=== PATIENT | male | born 1990 | race Caucasian/White ===

== ENCOUNTER 2016-09-10 18:21 | Emergency (ER) | payer SELFPAY ==
[~2016-09-10] VITALS: Ht 170.2 cm; Wt 52.2 kg
[~2016-09-10 18:21] MED LIST: HYDR-3989 PO; IBUP-1724 PO
--- OUTSIDE RECORDS SUMMARY | 2016-09-10 18:25 | XMS REPORT | Continuity of Care Document ---
Author Author [facility] Organization [facility] Address Unknown Phone Unavailable Support Name Relationship Address Phone VISHAL HERNANDEZ DO Caregiver [address] [phone] IGLESIA PIZARRO MD Caregiver [address] [address] Unavailable [place] Next Of Kin [address] [place] [address] Insurance Providers Payer Name Policy Number Subscriber Name Relationship Self Pay Major Castro 19 Self Problems Medical Problems Problem Onset Date Status Urethral calculus Unknown Active Urethral calculus Unknown Active Acute prostatitis Unknown Active Renal calculi Unknown Active Prostate calculus Unknown Active Acute prostatitis Unknown Active Low back pain Unknown Active Medications Medication Dose Route Sig Days/Qty Instructions Order Date Discontinued Date Status Hydrocodone/Acetaminophen 1-2 Tab PO Every 6 Hours PRN PAIN 10 Qty Active Diclofenac Sodium 75 Mg PO TWICE A DAY 20 Qty 02/19/14 Active Hydrocodone/Acetaminophen 1-2 Tab PO Q6H/0300,0900,1500,2100 PRN acute prostatitis 20 Qty 02/19/14 Active Social History Social History Problem Response Recorded Date/Time Smoking Status Unknown if ever smoked 03/30/2014 6:50pm Hx Substance Use No 03/30/2014 6:50pm Hx Alcohol Use Yes 03/30/2014 6:50pm Hospital Discharge Instructions No hospital discharge instructions. Plan of Care No plan of care. Functional Status Query Response Date Recorded Physical Hygiene Self March 30, 2014 6:50pm Disabilities None March 30, 2014 6:50pm Devices Used None March 30, 2014 6:50pm Dressing Self March 30, 2014 6:50pm Ambulation Self March 30, 2014 6:50pm Diet Self March 30, 2014 6:50pm Mental Status Alert March 30, 2014 7:34pm Disabilities None March 30, 2014 6:50pm Devices Used None March 30, 2014 6:50pm Physical Hygiene Self March 30, 2014 6:50pm Dressing Self March 30, 2014 6:50pm Ambulation Self March 30, 2014 6:50pm Diet Self March 30, 2014 6:50pm Allergies, Adverse Reactions, Alerts Allergen Type Severity Reaction Status Last Updated No Known Allergies Active 03/30/14 Immunizations No immunization records. Vital Signs Acute Vital Signs Vital Response Date/Time Temperature (Fahrenheit) 98.7 deg F (96.8 - 99.1) Temperature (Calculated Celsius) 37.43525 degrees C (36.0 - 37.3) Pulse Rate (adult) 75 bpm (60 - 100) Respiratory Rate 14 breaths/min (10 - 20) O2 Sat by Pulse Oximetry 100 % (90 - 100) Blood Pressure 146/73 mm Hg Height 5 ft 6 in Weight 125 lb Body Mass Index 20.0 kg/m^2 Results Test Source Date Result Interp. Ref. Range Comments Alanine Aminotransferase (ALT/SGPT) March 30, 2014 6:33pm 44 U/L N 21 -72 Albumin March 30, 2014 6:33pm 4.4 G/DL N 3.5-5.0 Albumin/Globulin Ratio March 30, 2014 6:33pm 1.7 RATIO N 1.1-2.2 Alkaline Phosphatase March 30, 2014 6:33pm 81 U/L N 38-126 Amylase Level February 19, 2014 1:25pm 48 U/L N 30-110 Anion Gap March 30, 2014 6:33pm 10 MEQ/L N 5-15 Aspartate Amino Transf (AST/SGOT) March 30, 2014 6:33pm 24 U/L N 17- 59 BUN/Creatinine Ratio March 30, 2014 6:33pm 11 RATIO N 6-26 Basophils # (Auto) March 30, 2014 6:33pm 0.2 T/MM3 N 0-0.2 Basophils (%) (Auto) March 30, 2014 6:33pm 1.0 % N 0-2 Blood Urea Nitrogen March 30, 2014 6:33pm 9.0 MG/DL N 9-20 Calcium Level March 30, 2014 6:33pm 9.8 MG/DL N 8.4-10.2 Calculated Osmolality March 30, 2014 6:33pm 274 MOSM/KG N 261-280 Carbon Dioxide Level March 30, 2014 6:33pm 27 MEQ/L N 22-30 Chloride Level March 30, 2014 6:33pm 106 MEQ/L N 98-107 Conjugated Bilirubin March 30, 2014 6:33pm 0.00 MG/DL N 0.00-0.30 Creatinine March 30, 2014 6:33pm 0.8 MG/DL N 0.8-1.5 Eosinophils # (Auto) March 30, 2014 6:33pm 0.3 T/MM3 N 0-0.5 Eosinophils (%) (Auto) March 30, 2014 6:33pm 1.7 % N 0-4 Globulin March 30, 2014 6:33pm 2.6 G/DL N 2.4-3.6 Glucose Level March 30, 2014 6:33pm 91 MG/DL N 75-110 Hematocrit March 30, 2014 6:33pm 38.8 % L 41-53 Hemoglobin March 30, 2014 6:33pm 13.4 GM/DL L 13.5-17.5 Lymphocytes # (Auto) March 30, 2014 6:33pm 2.8 T/MM3 N 1-4.8 Lymphocytes (%) (Auto) March 30, 2014 6:33pm 19.3 % L 23-45 Mean Corpuscular Hemoglobin March 30, 2014 6:33pm 29.4 UUG N 26-34 Mean Corpuscular Hemoglobin Concent March 30, 2014 6:33pm 34.5 GM/DL N 31-37 Mean Corpuscular Volume March 30, 2014 6:33pm 85.1 UM3 N 80-100 Mean Platelet Volume March 30, 2014 6:33pm 9.3 UM3 L 9.4-12.4 Monocytes # (Auto) March 30, 2014 6:33pm 0.7 T/MM3 N 0-0.8 Monocytes (%) (Auto) March 30, 2014 6:33pm 4.7 % N 0-9.0 Neutrophils # (Auto) March 30, 2014 6:33pm 10.8 T/MM3 H 1.8-7.7 Neutrophils (%) (Auto) March 30, 2014 6:33pm 73.0 % H 33-66 Platelet Count March 30, 2014 6:33pm 271 T/MM3 N 130-400 Potassium Level March 30, 2014 6:33pm 3.7 MEQ/L N 3.6-5 RDW Standard Deviation March 30, 2014 6:33pm 39.2 FL N 36.9-50.2 Red Blood Count March 30, 2014 6:33pm 4.56 M/MM3 N 4.50-5.90 Sodium Level March 30, 2014 6:33pm 143 MEQ/L N 134-144 Total Bilirubin March 30, 2014 6:33pm 0.40 MG/DL N 0.20-1.30 Total Protein March 30, 2014 6:33pm 7.0 G/DL N 6.3-8.2 Unconjugated Bilirubin March 30, 2014 6:33pm 0.10 MG/DL N 0.00-1.10 Urine Bilirubin March 30, 2014 7:04pm Negative - Has specimen been collected/obtained? Y Urine Blood March 30, 2014 7:04pm Negative - Has specimen been collected/obtained? Y Urine Collection Type March 30, 2014 7:04pm Cleancatch-midstream - Has specimen been collected/obtained? Y Urine Color March 30, 2014 7:04pm Yellow - Has specimen been collected/obtained? Y Urine Glucose (UA) March 30, 2014 7:04pm Negative - Has specimen been collected/obtained? Y Urine Ketones March 30, 2014 7:04pm Negative - Has specimen been collected/obtained? Y Urine Leukocyte Esterase March 30, 2014 7:04pm Negative - Has specimen been collected/obtained? Y Urine Nitrite March 30, 2014 7:04pm Negative - Has specimen been collected/obtained? Y Urine Protein March 30, 2014 7:04pm Negative - Has specimen been collected/obtained? Y Urine Specific [place] March 30, 2014 7:04pm 1.010 L - Has specimen been collected/obtained? Y Urine Turbidity March 30, 2014 7:04pm Clear - Has specimen been collected/obtained? Y Urine Urobilinogen March 30, 2014 7:04pm 0.2 EU/DL - Has specimen been collected/obtained? Y Urine pH March 30, 2014 7:04pm 7.0 - Has specimen been collected/ obtained? Y White Blood Count March 30, 2014 6:33pm 14.7 T/MM3 H 4.5-11.0 Chemistry Specimen Hemolysis March 30, 2014 6:33pm < 15 0-25 0-25 : No Hemolysis.26-70: Slight Hemolysis - can falsely elevate K and Urine Protein. 71-285: Moderate Hemolysis - can falsely elevate K, Troponin I, CA 19-9, PTH, CSF GLucose, and Urine Protein, and can falsely decrease Phenytoin. 286-999: Gross Hemolysis - can falsely elevate K, Troponin I, CA 19-9, PTH, CSF Glucose, and Urine Protine, and can falsely decrease Phenytoin. Recommend specimen recollection. Urinalysis Comment March 30, 2014 7:04pm Microscopic not ind. - Has specimen been collected/obtained? Y Lab Scanned Report March 30, 2014 7:30pm REFERENCE LAB [id number] - Turbidity March 30, 2014 6:33pm < 20 0-20 Glomerular Filtration Rate Calc March 30, 2014 6:33pm 121 - Immature Granulocyte # (Auto) March 30, 2014 6:33pm 0.04 T/MM3 H 0.00 -0.03 Immature Granulocyte % (Auto) March 30, 2014 6:33pm 0.3 % N 0.0-0.5 Procalcitonin February 19, 2014 1:25pm < 0.05 NG/ML - PCT </=0.5 ng/ mL - sepsis not likely;PCT >0.5 and </=2 ng/mL - sepsis possible; PCT >2 ng/mL - sepsis likely; PCT >/=10 ng/mL - systemic inflammatory response - sepsis or septic shock highly indicated. Icterus Index March 30, 2014 6:33pm < 2 0-7 Name: MAJOR CASTRO Unit #: [id number] : 1990 Sex: M Loc / [facility] [place]: ED DOS: 02/19/14 Signed Report #: [id number] DIAGNOSTIC IMAGING REPORT TYPE OF EXAM: CT RENAL W/O CONTRAST Dictated By: SAMRA ANTONIO MD INDICATION: ITS.REASON: right flank pain CT RENAL W/O CONTRAST: Comparison: Renal CT dated February 12, 2014 Technique: Axial CT images were performed through the abdomen and pelvis without intravenous contrast. Findings: The lung bases are clear. The unenhanced liver, gallbladder, spleen pancreas and adrenal glands are normal and stable. Right kidney appears normal. Left kidney again shows tiny nonobstructing stones. There is a tiny 2 mm stone in the superior pole of the right kidney seen on thin slice axial image number 59 and coronal image number 60. Again the ureters are difficult to follow due to the lack of intra-abdominal fat. Bowel loops are unremarkable. Appendix is normal. No gross adenopathy. Bladder is again moderately distended but thin-walled. A small calcification again seen in the central portion of the prostate. This probably represents a benign prostatic calcification or phlebolith rather than a urethral stone. No free fluid. Moderate stool in the rectosigmoid colon. Bone windows are normal. Impression: Tiny bilateral nonobstructing renal stones. No ureteral stones. . Procedures Procedure Status Date Provider(s) THER/PROPH/DIAG INJ IV PUSH completed 02/12/14 TX/PRO/DX INJ NEW DRUG ADDON completed 02/12/14 TX/PRO/DX INJ NEW DRUG ADDON completed 02/12/14 HYDRATE IV INFUSION ADD-ON completed 02/12/14 HYDRATE IV INFUSION ADD-ON completed 02/19/14 THER/PROPH/DIAG INJ IV PUSH completed 02/19/14 Encounters Encounter Location Date/Time Departed Emergency Room [facility] 03/30/14 3:10pm Departed Emergency Room [facility] 02/19/14 11:52am Departed Emergency Room [facility] 02/12/14 9:18am Recent Diagnosis
--- OUTSIDE RECORDS SUMMARY | 2016-09-10 18:25 | XMS REPORT | Continuity of Care Document ---
Author Author [facility] Organization [facility] Address Unknown Phone Unavailable Support Name Relationship Address Phone TAMARA GIRALDO MD Caregiver [address] [place] [address] [place] [phone] LAN CHRISTENSEN Next Of Kin [address] [place] [address] Insurance Providers Payer Name Policy Number Subscriber Name Relationship Self Pay Major Castro 19 Self Problems Medical Problems Problem Onset Date Status Urethral calculus Unknown Active Urethral calculus Unknown Active Acute prostatitis Unknown Active Renal calculi Unknown Active Prostate calculus Unknown Active Acute prostatitis Unknown Active Low back pain Unknown Active Contusion of rib on left side Unknown Active Contusion of rib on left side Unknown Active Medications Medication Dose Route Sig Days/Qty Instructions Order Date Discontinued Date Status Hydrocodone/Acetaminophen 1-2 Tab PO Every 6 Hours PRN PAIN 10 Qty Active Diclofenac Sodium 75 Mg PO TWICE A DAY 20 Qty 02/19/14 Active Hydrocodone/Acetaminophen 1-2 Tab PO Q6H/0300,0900,1500,2100 PRN acute prostatitis 20 Qty 14 Active Hydrocodone/Acetaminophen 1-2 Tab PO Every 6 Hours PRN PAIN 20 Qty 07/11 Active Social History Social History Problem Response Recorded Date/Time Hx Substance Use No 05/28/2014 12:08pm Hx Alcohol Use Yes 05/28/2014 12:08pm Tobacco Usage smoke 02/14/2014 7:41pm Query Response Start Date Stop Date Smoking Status Current every day smoker Hospital Discharge Instructions No hospital discharge instructions. Plan of Care No plan of care. Functional Status Query Response Date Recorded Physical Hygiene Self May 28, 2014 12:08pm Disabilities None May 28, 2014 12:08pm Devices Used None May 28, 2014 12:08pm Dressing Self May 28, 2014 12:08pm Ambulation Self May 28, 2014 12:08pm Diet Self May 28, 2014 12:08pm Mental Status Alert Oriented May 28, 2014 12:08pm Disabilities None May 28, 2014 12:08pm Devices Used None May 28, 2014 12:08pm Physical Hygiene Self May 28, 2014 12:08pm Dressing Self May 28, 2014 12:08pm Ambulation Self May 28, 2014 12:08pm Diet Self May 28, 2014 12:08pm Allergies, Adverse Reactions, Alerts Allergen Type Severity Reaction Status Last Updated No Known Allergies Active 05/28/14 Immunizations Name Given Type Hx Influenza Vaccination No Historical Hx Influenza Vaccination No Historical Vital Signs Acute Vital Signs Vital Response Date/Time Temperature (Fahrenheit) 98.2 deg F (96.8 - 99.1) Temperature (Calculated Celsius) 36.28915 degrees C (36.0 - 37.3) Pulse Rate (adult) 93 bpm (60 - 100) Respiratory Rate 12 breaths/min (10 - 20) O2 Sat by Pulse Oximetry 99 % (90 - 100) Blood Pressure 135/59 mm Hg Height 5 ft 6 in Weight 122 lb Body Mass Index 19.0 kg/m^2 Results Test Source Date Result Interp. [...] 6:33pm 0.10 MG/DL N 0.00-1.10 Urine Bilirubin May 28, 2014 12:40pm Negative - Has specimen been collected/obtained? Y Urine Blood May 28, 2014 12:40pm Negative - Has specimen been collected/obtained? Y Urine Collection Type May 28, 2014 12:40pm Cleancatch-midstream - Has specimen been collected/obtained? Y Urine Color May 28, 2014 12:40pm Yellow - Has specimen been collected/obtained? Y Urine Glucose (UA) May 28, 2014 12:40pm Negative - Has specimen been collected/obtained? Y Urine Ketones May 28, 2014 12:40pm Negative - Has specimen been collected/obtained? Y Urine Leukocyte Esterase May 28, 2014 12:40pm Negative - Has specimen been collected/obtained? Y Urine Nitrite May 28, 2014 12:40pm Negative - Has specimen been collected/obtained? Y Urine Protein May 28, 2014 12:40pm Negative - Has specimen been collected/obtained? Y Urine Specific [place] May 28, 2014 12:40pm 1.015 - Has specimen been collected/obtained? Y Urine Turbidity May 28, 2014 12:40pm Clear - Has specimen been collected/obtained? Y Urine Urobilinogen May 28, 2014 12:40pm 0.2 EU/DL - Has specimen been collected/obtained? Y Urine pH May 28, 2014 12:40pm 6.5 - Has specimen been collected/ obtained? Y [...] decrease Phenytoin. Recommend specimen recollection. Urinalysis Comment May 28, 2014 12:40pm Microscopic not ind. - Has specimen been collected/obtained? Y Lab Scanned Report March 30, 2014 7:30pm REFERENCE LAB [id number] - Turbidity March 30, 2014 6:33pm < [...] 2 0-7 Name: MAJOR CASTRO Unit #: [id number] : 1990 Sex: M Loc / Svc: ED DOS: 05/28/14 Signed Report #: [id number] DIAGNOSTIC IMAGING REPORT TYPE OF EXAM: RIBS LEFT WITH AP CHEST Dictated By: SAMRA ANTONIO MD INDICATION: ITS.REASON: PAIN RIBS LEFT WITH AP CHEST: Comparison: None FINDINGS: The lungs are clear. There is no abnormal airspace opacity, pleural effusion or pneumothorax identified. The heart size, pulmonary vasculature and mediastinum are within normal limits. No displaced rib fracture is seen. IMPRESSION: No acute cardiopulmonary abnormality. . Procedures Procedure Status Date Provider(s) THER/PROPH/DIAG INJ IV PUSH completed 03/30/14 TX/PRO/DX INJ NEW DRUG ADDON completed 03/30/14 TX/PRO/DX INJ NEW DRUG ADDON completed 03/30/14 Encounters Encounter Location Date/Time Departed Emergency Room [facility] 05/28/14 11:51am Departed Emergency Room [facility] 03/30/14 3:10pm Recent Diagnosis
--- OUTSIDE RECORDS SUMMARY | 2016-09-10 18:25 | XMS REPORT | Continuity of Care Document ---
Author Author [facility] Organization [facility] Address Unknown Phone Unavailable Allergies Active Description Code Type Severity Reaction Onset Reported/Identified Relationship to Patient Clinical Status Yes No Known Allergies No Known Allergies Drug Allergy Unknown N/A 05/04/2016 Yes amoxicillin amoxicillin Drug Allergy Severe THROAT SWELLING 05/18/2016 Yes Penicillins Penicillins Drug Allergy Unknown RASH, THROAT SWELLING 05/25/2016 Medications Problems Procedures Results Test Result Range CHEM/HEM PROFILE-BEDSIDE - 05/18/16 18:08 POTASSIUM 3.7 mmol/L 3.5-5.3 METHOD Bedside ANION GAP 19 mmol/L 10-20 METHOD Bedside GLUCOSE 119 mg/dL 70-99 BLOOD UREA NITROGEN 11 mg/dL 7-20 CREATININE 0.8 mg/dL 0.7-1.3 HEMOGLOBIN 12.2 gm/dL 14.0-18.0 HEMATOCRIT 36.0 % 40.0-54.0 SODIUM 142 mmol/L 135-148 CHLORIDE 103 mmol/L 98-110 CARBON DIOXIDE 24 mmol/L 21-32 CALCIUM IONIZED 4.8 mg/dL 4.5-5.3 URINALYSIS, NO REFLEX CULTURE - 05/18/16 19:08 UA LEUKOCYTE ESTERASE DIPSTICK 1+ NEGATIVE UA NITRITE DIPSTICK NEGATIVE NEGATIVE UA PROTEIN DIPSTICK TRACE NEGATIVE UA GLUCOSE DIPSTICK NEGATIVE NEGATIVE UA KETONE DIPSTICK NEGATIVE NEGATIVE UA UROBILINOGEN DIPSTICK NORMAL NORMAL UA BILIRUBIN DIPSTICK NEGATIVE NEGATIVE UA BLOOD DIPSTICK 4+ NEGATIVE UA SPECIFIC GRAVITY 1.006 1.015-1.025 UR PH 7.0 5.0-7.0 UA MICROSCOPIC - 05/18/16 19:08 UA BACTERIA 1+ NEGATIVE UA EPITHELIAL CELLS 2+ epi/hpf 0 - 1+ UA RBC >100 rbc/hpf 0 - 3 UA VOLUME FOR EXAM 12.0 mL (12mL STD) UA WBC 5-10 wbc/hpf 0 - 5 CHEM/HEM PROFILE-BEDSIDE - 05/26/16 00:59 POTASSIUM 4.0 mmol/L 3.5-5.3 METHOD Bedside ANION GAP 19 mmol/L 10-20 METHOD Bedside GLUCOSE 79 mg/dL 70-99 BLOOD UREA NITROGEN 8 mg/dL 7-20 CREATININE 0.9 mg/dL 0.7-1.3 HEMOGLOBIN 12.9 gm/dL 14.0-18.0 HEMATOCRIT 38.0 % 40.0-54.0 SODIUM 141 mmol/L 135-148 CHLORIDE 101 mmol/L 98-110 CARBON DIOXIDE 27 mmol/L 21-32 CALCIUM IONIZED 4.8 mg/dL 4.5-5.3 Encounters ACCT No. Visit Date/Time Discharge Status Pt. Type Provider Facility Loc./Unit Complaint [id number] 05/25/2016 22:05:00 2015 01:08:00 DIS Emergency Jaylin JENNINGS, [facility] [id number] 05/18/2016 17:15:00 2015 20:16:00 DIS Emergency Toni JENNINGS, [facility] [id number] 05/04/2016 16:57:00 2015 18:00:00 DIS Emergency Stefany JENNINGS, [facility]
--- OUTSIDE RECORDS SUMMARY | 2016-09-10 18:25 | XMS REPORT | Continuity of Care Document ---
Author Author [facility] Organization [facility] Address Unknown Phone Unavailable Support Name Relationship Address Phone CHON SHERMAN MD Caregiver [address] [place] [address] [place] [phone] ROBERTO SHERMAN MD Caregiver [address] [place] [address] [place] [id number] CHEYADELAN Next Of Kin [address] [place] [address] Insurance Providers Payer Name Policy Number Subscriber Name Relationship Self Pay Major Castro 19 Self Advance Directives Directive Response Recorded Date/Time Advanced Directives Type None 02/19/14 11:55am Problems Medical Problems Problem Onset Date Status Urethral calculus Unknown Active Urethral calculus Unknown Active Acute prostatitis Unknown Active Renal calculi Unknown Active Prostate calculus Unknown Active Acute prostatitis Unknown Active Medications Medication Dose Route Sig Days/Qty Instructions Order Date Discontinued Date Status Tamsulosin HCl 0.4 Mg PO BEDTIME 5 Qty Take 1 capsule, by mouth, 1 time a day (at BEDTIME). 02/12/14 Active Phenazopyridine HCl 200 Mg PO THREE TIMES A DAY PRN URINARY DISCOMFORT 10 Qty 02/12/14 Active Hydrocodone/Acetaminophen 1-2 Tab PO Every 6 Hours PRN PAIN 10 Qty Active Diclofenac Sodium 75 Mg PO TWICE A DAY 20 Qty 02/19/14 Active Ciprofloxacin HCl 500 Mg PO EVERY 12 HOURS 14 Days 02/19/14 Active Hydrocodone/Acetaminophen 1-2 Tab PO Q6H/0300,0900,1500,2100 PRN acute prostatitis 20 Qty 02/19/14 Active Social History Social History Problem Response Recorded Date/Time Smoking Status Current every day smoker 02/19/2014 12:13pm When did patient START smoking? 200602/19/2014 12:13pm Hx Substance Use No 02/19/2014 12:13pm Hx Alcohol Use Yes 02/19/2014 12:13pm Hospital Discharge Instructions No hospital discharge instructions. Plan of Care No plan of care. Functional Status Query Response Date Recorded Physical Hygiene Self February 19, 2014 12:13pm Disabilities None February 19, 2014 12:13pm Devices Used None February 19, 2014 12:13pm Dressing Self February 19, 2014 12:13pm Ambulation Self February 19, 2014 12:13pm Diet Self February 19, 2014 12:13pm Mental Status Alert February 19, 2014 12:13pm Disabilities None February 19, 2014 12:13pm Devices Used None February 19, 2014 12:13pm Physical Hygiene Self February 19, 2014 12:13pm Dressing Self February 19, 2014 12:13pm Ambulation Self February 19, 2014 12:13pm Diet Self February 19, 2014 12:13pm Allergies, Adverse Reactions, Alerts Allergen Type Severity Reaction Status Last Updated No Known Allergies Active 02/12/14 Immunizations No immunization records. Vital Signs Acute Vital Signs Vital Response Date/Time Temperature (Fahrenheit) 98.0 deg F (96.8 - 99.1) Temperature (Calculated Celsius) 36.36173 degrees C (36.0 - 37.3) Pulse Rate (adult) 60 bpm (60 - 100) Respiratory Rate 16 breaths/min (10 - 20) O2 Sat by Pulse Oximetry 100 % (90 - 100) Blood Pressure 125/69 mm Hg Height 5 ft 7 in Weight 116 lb Body Mass Index 18.0 kg/m^2 Results Test Source Date Result Interp. Ref. Range Comments Alanine Aminotransferase (ALT/SGPT) February 19, 2014 1:25pm 23 U/L N 21-72 Albumin February 19, 2014 1:25pm 4.0 G/DL N 3.5-5.0 Albumin/Globulin Ratio February 19, 2014 1:25pm 1.6 RATIO N 1.1-2.2 Alkaline Phosphatase February 19, 2014 1:25pm 86 U/L N 38-126 Amylase Level February 19, 2014 1:25pm 48 U/L N 30-110 Anion Gap February 19, 2014 1:25pm 11 MEQ/L N 5-15 Aspartate Amino Transf (AST/SGOT) February 19, 2014 1:25pm 28 U/L N 17- 59 BUN/Creatinine Ratio February 19, 2014 1:25pm 11 RATIO N 6-26 Basophils # (Auto) February 19, 2014 1:25pm 0.1 T/MM3 N 0-0.2 Basophils (%) (Auto) February 19, 2014 1:25pm 1.0 % N 0-2 Blood Urea Nitrogen February 19, 2014 1:25pm 10.0 MG/DL N 9-20 Calcium Level February 19, 2014 1:25pm 9.6 MG/DL N 8.4-10.2 Calculated Osmolality February 19, 2014 1:25pm 273 MOSM/KG N 261-280 Carbon Dioxide Level February 19, 2014 1:25pm 27 MEQ/L N 22-30 Chloride Level February 19, 2014 1:25pm 105 MEQ/L N 98-107 Creatinine February 19, 2014 1:25pm 0.9 MG/DL N 0.8-1.5 Eosinophils # (Auto) February 19, 2014 1:25pm 0.1 T/MM3 N 0-0.5 Eosinophils (%) (Auto) February 19, 2014 1:25pm 1.6 % N 0-4 Globulin February 19, 2014 1:25pm 2.5 G/DL N 2.4-3.6 Glucose Level February 19, 2014 1:25pm 73 MG/DL L 75-110 Hematocrit February 19, 2014 1:25pm 39.4 % L 41-53 Hemoglobin February 19, 2014 1:25pm 13.4 GM/DL L 13.5-17.5 Lymphocytes # (Auto) February 19, 2014 1:25pm 2.8 T/MM3 N 1-4.8 Lymphocytes (%) (Auto) February 19, 2014 1:25pm 34.7 % N 23-45 Mean Corpuscular Hemoglobin February 19, 2014 1:25pm 28.5 UUG N 26-34 Mean Corpuscular Hemoglobin Concent February 19, 2014 1:25pm 34.0 GM/DL N 31-37 Mean Corpuscular Volume February 19, 2014 1:25pm 83.8 UM3 N 80-100 Mean Platelet Volume February 19, 2014 1:25pm 9.7 UM3 N 9.4-12.4 Monocytes # (Auto) February 19, 2014 1:25pm 0.6 T/MM3 N 0-0.8 Monocytes (%) (Auto) February 19, 2014 1:25pm 7.6 % N 0-9.0 Neutrophils # (Auto) February 19, 2014 1:25pm 4.4 T/MM3 N 1.8-7.7 Neutrophils (%) (Auto) February 19, 2014 1:25pm 54.8 % N 33-66 Platelet Count February 19, 2014 1:25pm 239 T/MM3 N 130-400 Potassium Level February 19, 2014 1:25pm 3.9 MEQ/L N 3.6-5 RDW Standard Deviation February 19, 2014 1:25pm 38.0 FL N 36.9-50.2 Red Blood Count February 19, 2014 1:25pm 4.70 M/MM3 N 4.50-5.90 Sodium Level February 19, 2014 1:25pm 143 MEQ/L N 134-144 Total Bilirubin February 19, 2014 1:25pm 0.60 MG/DL N 0.20-1.30 Total Protein February 19, 2014 1:25pm 6.5 G/DL N 6.3-8.2 Urine Bilirubin February 19, 2014 12:45pm Negative - Has specimen been collected/obtained? Y Urine Blood February 19, 2014 12:45pm Negative - Has specimen been collected/obtained? Y Urine Collection Type February 19, 2014 12:45pm Cleancatch-midstream - Has specimen been collected/obtained? Y Urine Color February 19, 2014 12:45pm Yellow - Has specimen been collected/obtained? Y Urine Glucose (UA) February 19, 2014 12:45pm Negative - Has specimen been collected/obtained? Y Urine Ketones February 19, 2014 12:45pm Negative - Has specimen been collected/obtained? Y Urine Leukocyte Esterase February 19, 2014 12:45pm Negative - Has specimen been collected/obtained? Y Urine Nitrite February 19, 2014 12:45pm Negative - Has specimen been collected/obtained? Y Urine Protein February 19, 2014 12:45pm Negative - Has specimen been collected/obtained? Y Urine Specific [place] February 19, 2014 12:45pm <=1.005 L - Has specimen been collected/obtained? Y Urine Turbidity February 19, 2014 12:45pm Clear - Has specimen been collected/obtained? Y Urine Urobilinogen February 19, 2014 12:45pm 0.2 EU/DL - Has specimen been collected/obtained? Y Urine pH February 19, 2014 12:45pm 7.5 - Has specimen been collected /obtained? Y White Blood Count February 19, 2014 1:25pm 8.0 T/MM3 N 4.5-11.0 Chemistry Specimen Hemolysis February 19, 2014 1:25pm 42 H 0-25 0-25: No Hemolysis.26-70: Slight Hemolysis - can falsely elevate K and Urine Protein. 71-285: Moderate Hemolysis - can falsely elevate K, Troponin I, CA 19-9, PTH, CSF GLucose, and Urine Protein, and can falsely decrease Phenytoin. 286-999: Gross Hemolysis - can falsely elevate K, Troponin I, CA 19-9, PTH, CSF Glucose, and Urine Protine, and can falsely decrease Phenytoin. Recommend specimen recollection. Urinalysis Comment February 19, 2014 12:45pm Microscopic not ind. - Has specimen been collected/obtained? Y Turbidity February 19, 2014 1:25pm < 20 0-20 Glomerular Filtration Rate Calc February 19, 2014 1:25pm 106 - Immature Granulocyte # (Auto) February 19, 2014 1:25pm 0.02 T/MM3 N 0.00-0.03 Immature Granulocyte % (Auto) February 19, 2014 1:25pm 0.3 % N 0.0-0.5 Procalcitonin February 19, 2014 1:25pm < 0.05 NG/ML - PCT </=0.5 ng/ mL - sepsis not likely;PCT >0.5 and </=2 ng/mL - sepsis possible; PCT >2 ng/mL - sepsis likely; PCT >/=10 ng/mL - systemic inflammatory response - sepsis or septic shock highly indicated. Icterus Index February 19, 2014 1:25pm < 2 0-7 Name: MAJOR CASTRO Unit #: [id number] : 1990 Sex: M Loc / c: ED DOS: 02/19/14 Signed Report #: [id number] DIAGNOSTIC IMAGING REPORT TYPE OF EXAM: CT [...] 02/12/14 HYDRATE IV INFUSION ADD-ON completed 02/12/14 Encounters Encounter Location Date/Time Departed Emergency Room [facility] 02/19/14 11:52am Departed Emergency Room [facility] 02/12/14 9:18am Recent Diagnosis
--- OUTSIDE RECORDS SUMMARY | 2016-09-10 18:25 | XMS REPORT | Continuity of Care Document ---
Author Author [facility] Organization [facility] Address Unknown Phone Unavailable Support Name Relationship Address Phone CHON SHERMAN MD Caregiver [address] [place] [address] [place] [phone] LAN CHRISTENSEN Next Of Kin [address] [place] [address] Insurance Providers Payer Name Policy Number Subscriber Name Relationship Self Pay Major Castro 18 Self Advance Directives Directive Response Recorded Date/Time Advanced Directives Type None 02/12/14 9:23am Problems Medical Problems Problem Onset Date Status Urethral calculus Unknown Active Urethral calculus Unknown Active Medications Medication Dose Route Sig Days/Qty Instructions Order Date Discontinued Date Status Acetaminophen with Codeine Unknown Dose PO PRN PAIN/AIR HUNGER Active Tamsulosin HCl 0.4 Mg PO BEDTIME 5 Qty Take 1 capsule, by mouth, 1 time a day (at BEDTIME). 02/12/14 Active Phenazopyridine HCl 200 Mg PO THREE TIMES A DAY PRN URINARY DISCOMFORT 10 Qty 02/12/14 Active Hydrocodone/Acetaminophen 1-2 Tab PO Every 6 Hours PRN PAIN 10 Qty Active Social History Social History Problem Response Recorded Date/Time Smoking Status Current every day smoker 02/12/2014 9:31am When did patient START smoking? 200602/12/2014 9:31am Hx Alcohol Use Yes 02/12/2014 9:31am Hospital Discharge Instructions No hospital discharge instructions. Plan of Care No plan of care. Functional Status Query Response Date Recorded Physical Hygiene Self February 12, 2014 9:31am Disabilities None February 12, 2014 9:31am Devices Used None February 12, 2014 9:31am Dressing Self February 12, 2014 9:31am Ambulation Self February 12, 2014 9:31am Diet Self February 12, 2014 9:31am Mental Status Alert February 12, 2014 9:31am Disabilities None February 12, 2014 9:31am Devices Used None February 12, 2014 9:31am Physical Hygiene Self February 12, 2014 9:31am Dressing Self February 12, 2014 9:31am Ambulation Self February 12, 2014 9:31am Diet Self February 12, 2014 9:31am Allergies, Adverse Reactions, Alerts Allergen Type Severity Reaction Status Last Updated No Known Allergies Active 02/12/14 Immunizations No immunization records. Vital Signs Acute Vital Signs Vital Response Date/Time Temperature (Fahrenheit) 98.2 deg F (96.8 - 99.1) Temperature (Calculated Celsius) 36.00982 degrees C (36.0 - 37.3) Pulse Rate (adult) 70 bpm (60 - 100) Respiratory Rate 16 breaths/min (10 - 20) O2 Sat by Pulse Oximetry 100 % (90 - 100) Blood Pressure 116/66 mm Hg Height 5 ft 6 in Weight 116 lb Body Mass Index 18.0 kg/m^2 Results Test Source Date Result Interp. Ref. Range Comments Alanine Aminotransferase (ALT/SGPT) February 12, 2014 10:01am 25 U/L N 21-72 Albumin February 12, 2014 10:01am 4.2 G/DL N 3.5-5.0 Albumin/Globulin Ratio February 12, 2014 10:01am 1.6 RATIO N 1.1-2.2 Alkaline Phosphatase February 12, 2014 10:01am 67 U/L N 38-126 Anion Gap February 12, 2014 10:01am 13 MEQ/L N 5-15 Aspartate Amino Transf (AST/SGOT) February 12, 2014 10:01am 18 U/L N 17 -59 BUN/Creatinine Ratio February 12, 2014 10:01am 12 RATIO N 6-26 Basophils # (Auto) February 12, 2014 10:01am 0.1 T/MM3 N 0-0.2 Basophils (%) (Auto) February 12, 2014 10:01am 1.5 % N 0-2 Blood Urea Nitrogen February 12, 2014 10:01am 11.0 MG/DL N 9-20 Calcium Level February 12, 2014 10:01am 9.7 MG/DL N 8.4-10.2 Calculated Osmolality February 12, 2014 10:01am 277 MOSM/KG N 261-280 Carbon Dioxide Level February 12, 2014 10:01am 28 MEQ/L N 22-30 Chloride Level February 12, 2014 10:01am 104 MEQ/L N 98-107 Creatinine February 12, 2014 10:01am 0.9 MG/DL N 0.8-1.5 Eosinophils # (Auto) February 12, 2014 10:01am 0.2 T/MM3 N 0-0.5 Eosinophils (%) (Auto) February 12, 2014 10:01am 2.4 % N 0-4 Globulin February 12, 2014 10:01am 2.7 G/DL N 2.4-3.6 Glucose Level February 12, 2014 10:01am 77 MG/DL N 75-110 Hematocrit February 12, 2014 10:01am 41.7 % N 41-53 Hemoglobin February 12, 2014 10:01am 14.2 GM/DL N 13.5-17.5 Lymphocytes # (Auto) February 12, 2014 10:01am 2.1 T/MM3 N 1-4.8 Lymphocytes (%) (Auto) February 12, 2014 10:01am 28.7 % N 23-45 Mean Corpuscular Hemoglobin February 12, 2014 10:01am 29.0 UUG N 26-34 Mean Corpuscular Hemoglobin Concent February 12, 2014 10:01am 34.1 GM/DL N 31-37 Mean Corpuscular Volume February 12, 2014 10:01am 85.3 UM3 N 80-100 Mean Platelet Volume February 12, 2014 10:01am 9.6 UM3 N 9.4-12.4 Monocytes # (Auto) February 12, 2014 10:01am 0.5 T/MM3 N 0-0.8 Monocytes (%) (Auto) February 12, 2014 10:01am 7.3 % N 0-9.0 Neutrophils # (Auto) February 12, 2014 10:01am 4.4 T/MM3 N 1.8-7.7 Neutrophils (%) (Auto) February 12, 2014 10:01am 60.0 % N 33-66 Platelet Count February 12, 2014 10:01am 261 T/MM3 N 130-400 Potassium Level February 12, 2014 10:01am 3.9 MEQ/L N 3.6-5 RDW Standard Deviation February 12, 2014 10:01am 38.5 FL N 36.9-50.2 Red Blood Count February 12, 2014 10:01am 4.89 M/MM3 N 4.50-5.90 Sodium Level February 12, 2014 10:01am 145 MEQ/L H 134-144 Total Bilirubin February 12, 2014 10:01am 0.50 MG/DL N 0.20-1.30 Total Protein February 12, 2014 10:01am 6.9 G/DL N 6.3-8.2 Urine Bilirubin February 12, 2014 11:10am Negative - Has specimen been collected/obtained? Y Urine Blood February 12, 2014 11:10am Negative - Has specimen been collected/obtained? Y Urine Collection Type February 12, 2014 11:10am Cleancatch-midstream - Has specimen been collected/obtained? Y Urine Color February 12, 2014 11:10am Yellow - Has specimen been collected/obtained? Y Urine Glucose (UA) February 12, 2014 11:10am Negative - Has specimen been collected/obtained? Y Urine Ketones February 12, 2014 11:10am Negative - Has specimen been collected/obtained? Y Urine Leukocyte Esterase February 12, 2014 11:10am Negative - Has specimen been collected/obtained? Y Urine Nitrite February 12, 2014 11:10am Negative - Has specimen been collected/obtained? Y Urine Protein February 12, 2014 11:10am Negative - Has specimen been collected/obtained? Y Urine Specific [place] February 12, 2014 11:10am 1.010 L - Has specimen been collected/obtained? Y Urine Turbidity February 12, 2014 11:10am Clear - Has specimen been collected/obtained? Y Urine Urobilinogen February 12, 2014 11:10am 0.2 EU/DL - Has specimen been collected/obtained? Y Urine pH February 12, 2014 11:10am 7.5 - Has specimen been collected /obtained? Y White Blood Count February 12, 2014 10:01am 7.4 T/MM3 N 4.5-11.0 Chemistry Specimen Hemolysis February 12, 2014 10:01am < 15 0-25 0- 25: No Hemolysis.26-70: Slight Hemolysis - can falsely [...] Phenytoin. Recommend specimen recollection. Urinalysis Comment February 12, 2014 11:10am Microscopic not ind. - Has specimen been collected/obtained? Y Turbidity February 12, 2014 10:01am < 20 0-20 Glomerular Filtration Rate Calc February 12, 2014 10:01am 106 - Immature Granulocyte # (Auto) February 12, 2014 10:01am 0.01 T/MM3 N 0.00-0.03 Immature Granulocyte % (Auto) February 12, 2014 10:01am 0.1 % N 0.0- 0.5 Icterus Index February 12, 2014 10:01am < 2 0-7 Name: MAJOR CASTRO Unit #: [id number] : 1990 Sex: M Loc / Svc: ED DOS: 02/12/14 Signed Report #: [id number] DIAGNOSTIC IMAGING REPORT TYPE OF EXAM: CT RENAL W/O CONTRAST Dictated By: SAMRA ANTONIO MD INDICATION: ITS.REASON: right flank pain and history of stones, hematuria this am CT RENAL W/O CONTRAST: Comparison: None Technique: Axial CT images were performed through the abdomen and pelvis without intravenous contrast. Findings: The lung bases are clear. The unenhanced liver is normal. The gallbladder, spleen, pancreas and adrenal glands are within normal limits. There are several tiny 1 to 2-mm probable stones in the interpolar and lower polar area of the left kidney. No definite left ureteral stones. Portions of the ureters are difficult to follow. Right kidney shows no definite stone disease. No definite right ureteral stone. Bladder is moderately distended. There is a calcification in the central portion of the prostate measuring 3 mm in size. This could represent a calcification within the prostatic urethra at the urogenital diaphragm. The rectum is within normal limits. No free fluid or free air. Unopacified small and large bowel is grossly normal. Appendix is normal. Bone windows are normal. Impression: Possible 3mm stone in the prostatic urethra. No ureteral stones. Tiny nonobstructing left renal stones. . Procedures No known history of procedures. Encounters Encounter Location Date/Time Departed Emergency Room [facility] 02/12/14 9:18am Recent Diagnosis
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
[2016-09-10 18:50] VITALS: Ht 170.2 cm; Wt 52.2 kg
--- NOTE | 2016-09-10 18:52 | NUR ---
PROVIDER DR JOSEPH IN ROOM TO SEE PT
--- NOTE | 2016-09-10 18:56 | ERPDOC ---
Departure Disposition Decision Date: Sep 10, 2016 Disposition Decision Time: 18:55 Disposition: 01 DISCHARGED HOME, SELF-CARE Impression Impression Impression: Primary Impression: Pain, dental Severity: Mild Condition: Improved Seen By: Physician only Referrals: [facility] 2 Days Patient Instructions: Dental Caries (ED), Toothache (ED), ED Dental Follow-up Problems/Meds/Labs Reviewed?: Yes Medications reviewed and manag: Yes Follow up care ordered?: Yes Mental Status: Alert, Oriented Scripts Hydrocodone/Acetaminophen ([place] 5-325 Tablet) 5-325 Tablet 1 TAB PO Q4HR Y for PAIN for 2 Days, #12 TAB 0 Refills Prov: NOEMÍ JOSEPH DO 09/10/16 Clindamycin HCl (Clindamycin HCl) 150 Mg Capsule 2 CAP PO Q6HR for 10 Days, #80 CAP 0 Refills TAKE WITH A FULL GLASS OF WATER TO AVOID ESOPHAGEAL IRRITATION. Prov: NOEMÍ JOSEPH DO 09/10/16 HPI - General Medical General Chief Complaint: Toothache Stated Complaint: TOOTH PAIN Time Seen by Provider: 18:51 Source: patient Exam Limitations: no limitations HPI - General Medical Initial Comments 25-year-old male presents to the emergency department with a chief complaint of dental pain. Patient noted onset of symptoms several days ago. Patient has a history of diffusely poor dentition. Patient describes his pain as moderate. Pain is dull. There is no radiation of pain. Pain improves with rest and positioning. Pain increases with chewing. Patient denies any other complaints or associated symptoms. The pain is in the patient's lower teeth bilaterally. There is no chest pain or shortness of breath. No other complaints or associated symptoms. Patient was at home when the symptoms began. Symptoms have been persistent in nature with a gradual progression. Patient states that he has an appointment with an oral surgeon this coming week to have the teeth removed. Occurred At: home Onset: Gradual Allergies: Coded Allergies: Penicillins (Verified Allergy, Unknown, 06/14/16) amoxicillin (Verified Allergy, Unknown, 06/14/16) Past History Past Medical History Pt denies signifigant PMH ENMT: dental problems Male: UTI, kidney stones Surgical History Reproductive/: other Joint: knee Family History Family PMH: FOUND: CAD, cancer, diabetes Vaccines Hx Influenza Vaccination: No Social History Smoking Status: Current every day smoker Does patient use chewing tobac: No # of Packs/Tins per Day: 0.5 Second Hand Exposure: No Substance Use Type: does not use Alcohol Intake: none, a few times a week Sexuality: female partner Review of Systems Constitutional Constitutional: DENIES: chills, fever Eyes General: DENIES: erythema, exudate, pain Lids/Accessories: DENIES: erythema, swelling Vision: DENIES: acuity, blurring ENMT Ears: DENIES: drainage, erythema Hearing: DENIES: hearing loss Balance: DENIES: ataxia, falling to one side Sinuses: DENIES: congestion, pain Nose: DENIES: nosebleeds, pain Mouth/Throat: DENIES: painful swallowing, sore throat Teeth: pain Jaw: DENIES: pain Cardiovascular Cardiac: DENIES: chest pain, dyspnea on exertion Rhythm/Rate: DENIES: irregular beat, palpitations Vascular: DENIES: pedal edema, unilateral swelling Pulmonary Respiratory: DENIES: cough, dyspnea, pleuritic chest pain, sputum GI Upper Abdomen: DENIES: nausea, pain, vomiting Lower Abdomen: DENIES: diarrhea, pain General: DENIES: dysuria, frequency Musculoskeletal General: DENIES: joint pain, tenderness Integumentary Skin: DENIES: itching, rash Neurological General: DENIES: headache, numbness, weakness Psychiatric Psychiatric: DENIES: emotional instability, suicidal ideation/attempt Endocrine Endocrine: DENIES: polydipsia, polyphagia Hematologic/Lymphatic Hematologic/Lymphatic: DENIES: frequent nosebleeds, lymphadenopathy Allergic/Immunological Allergic/Immunoligical: DENIES: allergic reactions, hives Physical Exam General General Nourishment: well nourished, well developed, appears stated age, no acute distress, adult General Body Habitus: well groomed Vitals and Pain First Documented Vital Signs Date Time Temp Pulse Resp B/P Pulse Ox O2 Delivery O2 Flow Rate FiO2 09/10/16 18:50 98.9 100 20 144/84 100 Room Air Weight: Kilograms: Height (feet): 5 Height (inches): 7.00 Triage Pain Scale: RN VS reviewed by Provider: Yes Normal Exams: Head: Normocephalic w/o trauma Eyes: Pupils are PERRLA w/ EOMI, No scleral icterus, irritation, or foreign bodies noted ENMT: No facial trauma, nasal exudates, pharyngeal erythema, or exudates are noted Neck: Full range of motion, without adenopathy, JVD, bruits or thyromegaly Chest/Resp: Clear all rodriguez, with good airflow, and symmetry bilaterally CV: Regular rate and rhythm, without murmur or gallop, Pulses 2+ all extremities, capillary refill, <2 seconds all ext., no pedal edema noted Abdomen: Bowel sounds positive, soft, non-tender, non-distended, no hepatosplenomegaly, masses or bruits noted Lymphatic: No lymphadenopathy, or lymphedema noted Musculoskeletal: No tenderness, or deformity noted, good range of motion, all extremities Integumentary: No rashes, hives, or bruising noted, hair and nails, without abnormality Neurologic: Patient is alert, and oriented, cranial nerves, motor/sensory/ cerebellar, exams w/o gross deficits, to observation Psychiatric: Patient exhibits, appropriate attention, emotion and affect Eyes (brief) Comments Oral - diffusely poor dentition. Diffuse dental caries. Uvula midline. No sign of abscess. No elevation of tongue. No facial swelling or cellulitis. No pharyngeal erythema. No tonsillar exudate. Voice is normal. Handling secretions without difficulty. Teeth #20 and #30 are tender to percussion with diffuse dental caries. Differential Diagnoses Considering: Other (dental pain/dental abscess/dental trauma/dental injury) Progress Results/Orders Orders Procedure Category Date Status Time Hydrocodone/Acetaminophen PHA 09/10/16 Complete ([place] 5/325) 19:00 Medications Current ED Medications Acetaminophen/ Hydrocodone Bitart ([place] 5/325) 1 tab O ONCE PO Last administered on 09/10/16t 19:07; Start 09/10/16 at 19:00; Stop 09/10/16 at 19:01 ; Status DC Progress Progress Patient is given analgesic pain medication in the emergency department with improvement of symptoms. Patient is instructed to stop the Keflex he is currently on and a prescription for clindamycin is provided. Patient is discharged home in improved condition. patient is to follow up as instructed. Patient is in agreement with the current plan of management. Patient is to return to the emergency department if his condition worsens or changes in any manner. Patient is in agreement with the current plan of management. He is to follow up as instructed. NOEMÍ JOSEPH DO Sep 10, 2016 18:56
[2016-09-10] MEDS ORDERED: HYDROCODONE/APAP 5 mg/325 mg TABLET PO ONE (19:00)
[2016-09-10] MEDS ORDERED: CLIN-89 PO (19:00)
[2016-09-10] MEDS ORDERED: HYDR-4246 PO (19:00)
--- OUTSIDE RECORDS SUMMARY | 2016-09-10 19:02 | XMS REPORT | Continuity of Care Document ---
Author Author [facility] Organization [facility] Address Unknown Phone Unavailable Support Name Relationship Address Phone CHON SHERMAN MD Caregiver [address] [place] [address] [place] [address] LAN CHRISTENSEN Next Of Kin [address] [place] [address] Insurance Providers Payer Name Policy [...] F (96.8 - 99.1) Temperature (Calculated Celsius) 36.04087 degrees C (36.0 - 37.3) Pulse Rate [...] Has specimen been collected/obtained? Y Urine Specific [place] February 12, 2014 11:10am 1.010 L - [...] 2 0-7 Name: MAJOR CASTRO Unit #: [id number] : 1990 Sex: M Loc / Svc: ED DOS: 02/12/14 Signed Report #: [id number] DIAGNOSTIC IMAGING REPORT TYPE OF EXAM: CT [...] Encounters Encounter Location Date/Time Departed Emergency Room [facility] 02/12/14 9:18am Recent Diagnosis
--- OUTSIDE RECORDS SUMMARY | 2016-09-10 19:02 | XMS REPORT | Continuity of Care Document ---
Author Author [facility] Organization [facility] Address Unknown Phone Unavailable Allergies Active Description [...] Status Pt. Type Provider Facility Loc./Unit Complaint [id number] 05/25/2016 22:05:00 2015 01:08:00 DIS Emergency Jaylin JENNINGS, [facility].THANG [id number] 05/18/2016 17:15:00 2015 20:16:00 DIS Emergency Toni JENNINGS, [facility] [id number] 05/04/2016 16:57:00 2015 18:00:00 DIS [facility]
--- OUTSIDE RECORDS SUMMARY | 2016-09-10 19:03 | XMS REPORT | Continuity of Care Document ---
Author Author [facility] Organization [facility] Address Unknown Phone Unavailable Support Name Relationship Address Phone VISHAL HERNANDEZ DO Caregiver [address] [id number] IGLESIA PIZARRO MD Caregiver [address] [address] Unavailable ALVINNAWAFLAN Next Of Kin [address] [place] [address] Insurance Providers Payer Name Policy [...] F (96.8 - 99.1) Temperature (Calculated Celsius) 37.94981 degrees C (36.0 - 37.3) Pulse Rate [...] Has specimen been collected/obtained? Y Urine Specific [place] March 30, 2014 7:04pm 1.010 L - [...] Report March 30, 2014 7:30pm REFERENCE LAB [id number] - Turbidity March 30, 2014 6:33pm < [...] 2 0-7 Name: MAJOR CASTRO Unit #: [id number] : 1990 Sex: M [place] [facility] [place]: [place]/19/[place] Signed Report #: [id number] DIAGNOSTIC IMAGING REPORT TYPE OF EXAM: CT [...] Encounters Encounter Location Date/Time Departed Emergency Room [facility] 03/30/14 3:10pm Departed Emergency Room [facility] 02/19/14 11:52am Departed Emergency Room [facility] 02/12/14 9:18am Recent Diagnosis
--- OUTSIDE RECORDS SUMMARY | 2016-09-10 19:03 | XMS REPORT | Continuity of Care Document ---
Author Author [facility] Organization [facility] Address Unknown Phone Unavailable Support Name Relationship Address Phone TAMARA GIRALDO MD Caregiver [address] [place] [address] [place] [phone] LAN CHRISTENSEN Next Of Kin [address] [place] [address] Insurance Providers Payer Name Policy [...] F (96.8 - 99.1) Temperature (Calculated Celsius) 36.38529 degrees C (36.0 - 37.3) Pulse Rate [...] Has specimen been collected/obtained? Y Urine Specific [place] May 28, 2014 12:40pm 1.015 - Has [...] Report March 30, 2014 7:30pm REFERENCE LAB [id number] - Turbidity March 30, 2014 6:33pm < [...] 2 0-7 Name: MAJOR CASTRO Unit #: [id number] : 1990 Sex: M Loc / Svc: ED DOS: 05/28/14 Signed Report #: [id number] DIAGNOSTIC IMAGING REPORT TYPE OF EXAM: RIBS [...] Encounters Encounter Location Date/Time Departed Emergency Room [facility] 05/28/14 11:51am Departed Emergency Room [facility] 03/30/14 3:10pm Recent Diagnosis
--- OUTSIDE RECORDS SUMMARY | 2016-09-10 19:03 | XMS REPORT | Continuity of Care Document ---
Author Author [facility] Organization [facility] Address Unknown Phone Unavailable Support Name Relationship Address Phone CHON SHERMAN MD Caregiver [address] [place] [address] [place] [phone] ROBERTO SHERMAN MD Caregiver [address] [place] [address] [place] [phone] CHEYADELAN Next Of Kin [address] [place] [address] Insurance Providers Payer Name Policy [...] F (96.8 - 99.1) Temperature (Calculated Celsius) 36.26032 degrees C (36.0 - 37.3) Pulse Rate [...] Has specimen been collected/obtained? Y Urine Specific [place] February 19, 2014 12:45pm <=1.005 L - [...] 2 0-7 Name: MAJOR CASTRO Unit #: [id number] : 1990 Sex: M Loc / c: ED DOS: 02/19/14 Signed Report #: [id number] DIAGNOSTIC IMAGING REPORT TYPE OF EXAM: CT [...] Encounters Encounter Location Date/Time Departed Emergency Room [facility] 02/19/14 11:52am Departed Emergency Room [facility] 02/12/14 9:18am Recent Diagnosis
[2016-09-10 19:09] VITALS: BP 144/84; PULSE 100; RESP 20; TEMP 98.9; O2SAT 100
--- NOTE | 2016-09-10 19:09 | NUR ---
DEPART PT IS GIVEN DISMISSAL INSTRUCTIONS WITH VERBAL UNDERSTANDING. PT IS GIVEN SCRIPTS X2. PT LEAVES AMBULTORY TO ED REGISTRATION DESK
== END 2016-09-10 19:09 | disposition home or self-care (01) ==
LOC: ED 18:21
DX: K02.9 Dental caries, unspecified (principal)

== ENCOUNTER 2016-09-25 00:17 | Emergency (ER) | payer SELFPAY ==
[~2016-09-25] VITALS: Ht 170.2 cm; Wt 54.5 kg
[2016-09-25 00:17] VITALS: Ht 170.2 cm; Wt 54.5 kg
[~2016-09-25 00:17] MED LIST changes: +CLIN-89 PO; -HYDR-3989 PO; +HYDR-4246 PO
--- OUTSIDE RECORDS SUMMARY | 2016-09-25 00:20 | XMS REPORT | Continuity of Care Document ---
Author Author [facility] Organization [facility] Address Unknown Phone Unavailable Support Name Relationship Address Phone CHON SHERMAN MD Caregiver [address] [place] [address] [place] [address] LAN CHRISTENSEN Next Of Kin [address] [place] [address] Insurance Providers Payer Name Policy [...] F (96.8 - 99.1) Temperature (Calculated Celsius) 36.96920 degrees C (36.0 - 37.3) Pulse Rate [...] Has specimen been collected/obtained? Y Urine Specific [place] February 12, 2014 11:10am 1.010 L - [...] 2 0-7 Name: MAJOR CASTRO Unit #: [id number] : 1990 Sex: M Loc / Svc: ED DOS: 02/12/14 Signed Report #: [id number] DIAGNOSTIC IMAGING REPORT TYPE OF EXAM: CT [...] Encounters Encounter Location Date/Time Departed Emergency Room [facility] 02/12/14 9:18am Recent Diagnosis
--- OUTSIDE RECORDS SUMMARY | 2016-09-25 00:21 | XMS REPORT | Continuity of Care Document ---
Author Author [facility] Organization [facility] Address Unknown Phone Unavailable Support Name Relationship Address Phone CHON SHERMAN MD Caregiver [address] [place] [address] [place] [address] ROBERTO SHERMAN MD Caregiver [address] [place] [address] [place] [address] CHEYADELAN Next Of Kin [address] [place] [address] Insurance Providers Payer Name Policy [...] F (96.8 - 99.1) Temperature (Calculated Celsius) 36.84201 degrees C (36.0 - 37.3) Pulse Rate [...] specimen been collected/obtained? Y Urine Specific [place] February 19, 2014 12:45pm <=1.005 L - [...] 2 0-7 Name: MAJOR CASTRO Unit #: [id number] : 1990 Sex: M Loc / c: ED DOS: 02/19/14 Signed Report #: [id number] DIAGNOSTIC IMAGING REPORT TYPE OF EXAM: CT [...] Encounters Encounter Location Date/Time Departed Emergency Room [facility] 02/19/14 11:52am Departed Emergency Room [facility] 02/12/14 9:18am Recent Diagnosis
--- OUTSIDE RECORDS SUMMARY | 2016-09-25 00:21 | XMS REPORT | Continuity of Care Document ---
Author Author [facility] Organization [facility] Address Unknown Phone Unavailable Support Name Relationship Address Phone VISHAL HERNANDEZ DO Caregiver [address] [phone] IGLESIA PIZARRO MD Caregiver [address] [address] Unavailable ALVINNAWAFLAN Next Of Kin [address] [place] [address] Insurance Providers Payer Name Policy [...] F (96.8 - 99.1) Temperature (Calculated Celsius) 37.59102 degrees C (36.0 - 37.3) Pulse Rate [...] Has specimen been collected/obtained? Y Urine Specific [place] March 30, 2014 7:04pm 1.010 L - [...] Report March 30, 2014 7:30pm REFERENCE LAB [id number] - Turbidity March 30, 2014 6:33pm < [...] 2 0-7 Name: MAJOR CASTRO Unit #: [id number] : 1990 Sex: M Loc / [facility]: ED DOS: 02/19/14 Signed Report #: [id number] DIAGNOSTIC IMAGING REPORT TYPE OF EXAM: CT [...] Encounters Encounter Location Date/Time Departed Emergency Room [facility] 03/30/14 3:10pm Departed Emergency Room [facility] 02/19/14 11:52am Departed Emergency Room [facility] 02/12/14 9:18am Recent Diagnosis
--- OUTSIDE RECORDS SUMMARY | 2016-09-25 00:21 | XMS REPORT | Continuity of Care Document ---
Author Author [facility] Organization [facility] Address Unknown Phone Unavailable Allergies Active Description [...] Status Pt. Type Provider Facility Loc./Unit Complaint [id number] 05/25/2016 22:05:00 2015 01:08:00 DIS Emergency Jaylin JENNINGS, [facility].THANG [id number] 05/18/2016 17:15:00 2015 20:16:00 DIS Emergency Toni JENNINGS, [facility] [id number] 05/04/2016 16:57:00 2015 18:00:00 DIS [facility]
--- OUTSIDE RECORDS SUMMARY | 2016-09-25 00:21 | XMS REPORT | Continuity of Care Document ---
Author Author [facility] Organization [facility] Address Unknown Phone Unavailable Support Name Relationship Address Phone TAMARA GIRALDO MD Caregiver [address] [place] [address] [place] [phone] LAN CHRISTENSEN Next Of Kin [address] [place] [address] Insurance Providers Payer Name Policy [...] F (96.8 - 99.1) Temperature (Calculated Celsius) 36.79329 degrees C (36.0 - 37.3) Pulse Rate [...] Has specimen been collected/obtained? Y Urine Specific [place] May 28, 2014 12:40pm 1.015 - Has [...] Report March 30, 2014 7:30pm REFERENCE LAB [id number] - Turbidity March 30, 2014 6:33pm < [...] 2 0-7 Name: MAJOR CASTRO Unit #: [id number] : 1990 Sex: M Loc / Svc: ED DOS: 05/28/14 Signed Report #: [id number] DIAGNOSTIC IMAGING REPORT TYPE OF EXAM: RIBS [...] Encounters Encounter Location Date/Time Departed Emergency Room [facility] 05/28/14 11:51am Departed Emergency Room [facility] 03/30/14 3:10pm Recent Diagnosis
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
--- NOTE | 2016-09-25 00:37 | NUR ---
PROVIDER DR JOSEPH IN ROOM TO SEE PT
--- NOTE | 2016-09-25 01:00 | NUR ---
TO XRAY VIA W/C
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
--- NOTE | 2016-09-25 01:09 | NUR ---
RETURN FROM XRAY
--- OUTSIDE RECORDS SUMMARY | 2016-09-25 01:29 | XMS REPORT | Continuity of Care Document ---
Author Author [facility] Organization [facility] Address Unknown Phone Unavailable Support Name Relationship Address Phone CHON SHERMAN MD Caregiver [address] [place] [address] [place] [address] ROBERTO SHERMAN MD Caregiver [address] [place] [address] [place] [address] CHEYADELAN Next Of Kin [address] [place] [address] Insurance Providers Payer Name Policy [...] F (96.8 - 99.1) Temperature (Calculated Celsius) 36.00212 degrees C (36.0 - 37.3) Pulse Rate [...] Has specimen been collected/obtained? Y Urine Specific [place] February 19, 2014 12:45pm <=1.005 L - [...] 2 0-7 Name: MAJOR CASTRO Unit #: [id number] : 1990 Sex: M Loc / c: ED DOS: 02/19/14 Signed Report #: [id number] DIAGNOSTIC IMAGING REPORT TYPE OF EXAM: CT [...] Encounters Encounter Location Date/Time Departed Emergency Room [facility] 02/19/14 11:52am Departed Emergency Room [facility] 02/12/14 9:18am Recent Diagnosis
--- OUTSIDE RECORDS SUMMARY | 2016-09-25 01:29 | XMS REPORT | Continuity of Care Document ---
Author Author [facility] Organization [facility] Address Unknown Phone Unavailable Support Name Relationship Address Phone CHON SHERMAN MD Caregiver [address] [place] [address] [place] [address] LAN CHRISTENSEN Next Of Kin [address] [place] [address] Insurance Providers Payer Name Policy [...] F (96.8 - 99.1) Temperature (Calculated Celsius) 36.55925 degrees C (36.0 - 37.3) Pulse Rate [...] Has specimen been collected/obtained? Y Urine Specific [place] February 12, 2014 11:10am 1.010 L - [...] 2 0-7 Name: MAJOR CASTRO Unit #: [id number] : 1990 Sex: M Loc / Svc: ED DOS: 02/12/14 Signed Report #: [id number] DIAGNOSTIC IMAGING REPORT TYPE OF EXAM: CT [...] Encounters Encounter Location Date/Time Departed Emergency Room [facility] 02/12/14 9:18am Recent Diagnosis
--- OUTSIDE RECORDS SUMMARY | 2016-09-25 01:29 | XMS REPORT | Continuity of Care Document ---
Author Author [facility] Organization [facility] Address Unknown Phone Unavailable Allergies [...] Status Pt. Type Provider Facility Loc./Unit Complaint [id number] 05/25/2016 22:05:00 2015 01:08:00 DIS Emergency Jaylin JENNINGS, [facility].THANG [id number] 05/18/2016 17:15:00 2015 20:16:00 DIS Emergency Toni JENNINGS, [facility] [id number] 05/04/2016 16:57:00 2015 18:00:00 DIS [facility]
--- OUTSIDE RECORDS SUMMARY | 2016-09-25 01:29 | XMS REPORT | Continuity of Care Document ---
Author Author [facility] Organization [facility] Address Unknown Phone Unavailable Support Name Relationship Address Phone TAMARA GIRALDO MD Caregiver [address] [place] [address] [place] [phone] LAN CHRISTENSEN Next Of Kin [address] [place] [address] Insurance Providers Payer Name Policy [...] F (96.8 - 99.1) Temperature (Calculated Celsius) 36.80055 degrees C (36.0 - 37.3) Pulse Rate [...] Has specimen been collected/obtained? Y Urine Specific [place] May 28, 2014 12:40pm 1.015 - Has [...] Report March 30, 2014 7:30pm REFERENCE LAB [id number] - Turbidity March 30, 2014 6:33pm < [...] 2 0-7 Name: MAJOR CASTRO Unit #: [id number] : 1990 Sex: M Loc / Svc: ED DOS: 05/28/14 Signed Report #: [id number] DIAGNOSTIC IMAGING REPORT TYPE OF EXAM: RIBS [...] Encounters Encounter Location Date/Time Departed Emergency Room [facility] 05/28/14 11:51am Departed Emergency Room [facility] 03/30/14 3:10pm Recent Diagnosis
--- OUTSIDE RECORDS SUMMARY | 2016-09-25 01:29 | XMS REPORT | Continuity of Care Document ---
Author Author [facility] Organization [facility] Address Unknown Phone Unavailable Support Name Relationship Address Phone VISHAL HERNANDEZ DO Caregiver [address] [id number] IGLESIA PIZARRO MD Caregiver [address] [address] Unavailable ALVINNAWAFLAN Next Of Kin [address] [place] [address] Insurance Providers Payer Name Policy [...] F (96.8 - 99.1) Temperature (Calculated Celsius) 37.16813 degrees C (36.0 - 37.3) Pulse Rate [...] Has specimen been collected/obtained? Y Urine Specific [place] March 30, 2014 7:04pm 1.010 L - [...] Report March 30, 2014 7:30pm REFERENCE LAB [id number] - Turbidity March 30, 2014 6:33pm < [...] 2 0-7 Name: MAJOR CASTRO Unit #: [id number] : 1990 Sex: M Loc / [facility]: ED DOS: 02/19/14 Signed Report #: [id number] DIAGNOSTIC IMAGING REPORT TYPE OF EXAM: CT [...] Encounters Encounter Location Date/Time Departed Emergency Room [facility] 03/30/14 3:10pm Departed Emergency Room [facility] 02/19/14 11:52am Departed Emergency Room [facility] 02/12/14 9:18am Recent Diagnosis
[2016-09-25] MEDS ORDERED: HYDR-4246 PO (01:42)
[2016-09-25] MEDS ORDERED: HYDROCODONE/APAP 5 mg/325 mg TABLET PO ONE (01:45)
[2016-09-25 02:15] VITALS: BP 157/87; PULSE 67; RESP 18; TEMP 97.1; O2SAT 97
--- NOTE | 2016-09-25 02:15 | NUR ---
DEPART DR JOSEPH SPLINTED ARM. PT IS GIVEN DISMISSAL INSTRUCTIONS WITH VERBAL UNDERSTANDING. PT UNDERSTANDS HE IS TO FOLLOW UP WITH [facility] IN 2 DAYS. PT LEAVES AMBULATORY TO ED EXIT
--- NOTE | 2016-09-25 07:58 | DI ---
Indication: ITS.REASON: Trauma with right hand pain PROCEDURE: HAND RIGHT 3 VIEW: Encounter: Initial Comparison: July 30, 2016 Findings: There is no acute fracture, dislocation or malalignment identified. Impression: No acute osseous abnormality. There is a preliminary report by virtual radiologic. .
== END 2016-09-25 02:15 | disposition home or self-care (01) ==
LOC: ED 00:17
DX: S60.221A Contusion of right hand, initial encounter (principal); X83.8XXA Intentional self-harm by other specified means, initial encounter; Y93.89 Activity, other specified; Y92.000 Kitchen of unspecified non-institutional (private) residence as the place of occurrence of the external cause; Y99.8 Other external cause status

== ENCOUNTER 2016-09-30 19:06 | Emergency (ER) | payer OTHER ==
[~2016-09-30] VITALS: Ht 170.2 cm; Wt 54.7 kg
[2016-09-30 19:06] VITALS: Ht 170.2 cm; Wt 54.7 kg
[~2016-09-30 19:06] MED LIST changes: -CLIN-89 PO
--- OUTSIDE RECORDS SUMMARY | 2016-09-30 19:11 | XMS REPORT | Continuity of Care Document ---
Author Author [facility] Organization [facility] Address Unknown Phone Unavailable Support Name Relationship Address Phone CHON SHERMAN MD Caregiver [address] [place] [address] [place] [address] LAN CHRISTENSEN Next Of Kin [address] [place] [address] Insurance Providers Payer Name Policy [...] F (96.8 - 99.1) Temperature (Calculated Celsius) 36.26972 degrees C (36.0 - 37.3) Pulse Rate [...] Has specimen been collected/obtained? Y Urine Specific [place] February 12, 2014 11:10am 1.010 L - [...] 2 0-7 Name: MAJOR CASTRO Unit #: [id number] : 1990 Sex: M Loc / Svc: ED DOS: 02/12/14 Signed Report #: [id number] DIAGNOSTIC IMAGING REPORT TYPE OF EXAM: CT [...] Encounters Encounter Location Date/Time Departed Emergency Room [facility] 02/12/14 9:18am Recent Diagnosis
--- OUTSIDE RECORDS SUMMARY | 2016-09-30 19:11 | XMS REPORT | Continuity of Care Document ---
Author Author [facility] Organization [facility] Address Unknown Phone Unavailable Allergies Active Description [...] Status Pt. Type Provider Facility Loc./Unit Complaint [id number] 05/25/2016 22:05:00 2015 01:08:00 DIS Emergency Jaylin JENNINGS, [facility].THANG [id number] 05/18/2016 17:15:00 2015 20:16:00 DIS Emergency Toni JENNINGS, [facility] [id number] 05/04/2016 16:57:00 2015 18:00:00 DIS [facility]
--- OUTSIDE RECORDS SUMMARY | 2016-09-30 19:11 | XMS REPORT | Continuity of Care Document ---
Author Author [facility] Organization [facility] Address Unknown Phone Unavailable Support Name Relationship Address Phone CHON SHERMAN MD Caregiver [address] [place] [address] [place] [address] ROBERTO SHERMAN MD Caregiver [address] [place] [address] [place] [address] CHEYADELAN Next Of Kin [address] [place] [address] Insurance Providers Payer Name Policy [...] F (96.8 - 99.1) Temperature (Calculated Celsius) 36.11863 degrees C (36.0 - 37.3) Pulse Rate [...] Has specimen been collected/obtained? Y Urine Specific [place] February 19, 2014 12:45pm <=1.005 L - [...] 2 0-7 Name: MAJOR CASTRO Unit #: [id number] : 1990 Sex: M Loc / c: ED DOS: 02/19/14 Signed Report #: [id number] DIAGNOSTIC IMAGING REPORT TYPE OF EXAM: CT [...] Date/Time Departed Emergency Room [facility] 02/19/14 11:52am Departed Emergency Room [facility] 02/12/14 9:18am Recent Diagnosis
--- OUTSIDE RECORDS SUMMARY | 2016-09-30 19:11 | XMS REPORT | Continuity of Care Document ---
Author Author [facility] Organization [facility] Address Unknown Phone Unavailable Support Name Relationship Address Phone TAMARA GIRALDO MD Caregiver [address] [place] [address] [place] [phone] LAN CHRISTENSEN Next Of Kin [address] [place] [address] Insurance Providers Payer Name Policy [...] F (96.8 - 99.1) Temperature (Calculated Celsius) 36.30473 degrees C (36.0 - 37.3) Pulse Rate [...] Has specimen been collected/obtained? Y Urine Specific [place] May 28, 2014 12:40pm 1.015 - Has [...] Report March 30, 2014 7:30pm REFERENCE LAB [id number] - Turbidity March 30, 2014 6:33pm < [...] 2 0-7 Name: MAJOR CASTRO Unit #: [id number] : 1990 Sex: M Loc / Svc: ED DOS: 05/28/14 Signed Report #: [id number] DIAGNOSTIC IMAGING REPORT TYPE OF EXAM: RIBS [...] Encounters Encounter Location Date/Time Departed Emergency Room [facility] 05/28/14 11:51am Departed Emergency Room [facility] 03/30/14 3:10pm Recent Diagnosis
--- OUTSIDE RECORDS SUMMARY | 2016-09-30 19:12 | XMS REPORT | Continuity of Care Document ---
Author Author [facility] Organization [facility] Address Unknown Phone Unavailable Support Name Relationship Address Phone VISHLA HERNANDEZ DO Caregiver [address] [phone] IGLESIA PIZARRO MD Caregiver [address] [address] Unavailable ALVINNAWAFLAN Next Of Kin [address] [place] [address] Insurance Providers Payer Name Policy [...] F (96.8 - 99.1) Temperature (Calculated Celsius) 37.58192 degrees C (36.0 - 37.3) Pulse Rate [...] Has specimen been collected/obtained? Y Urine Specific [place] March 30, 2014 7:04pm 1.010 L - [...] Report March 30, 2014 7:30pm REFERENCE LAB [id number] - Turbidity March 30, 2014 6:33pm < [...] 2 0-7 Name: MAJOR CASTRO Unit #: [id number] : 1990 Sex: M Loc / [facility]: ED DOS: 02/19/14 Signed Report #: [id number] DIAGNOSTIC IMAGING REPORT TYPE OF EXAM: CT [...] Encounters Encounter Location Date/Time Departed Emergency Room [facility] 03/30/14 3:10pm Departed Emergency Room [facility] 02/19/14 11:52am Departed Emergency Room [facility] 02/12/14 9:18am Recent Diagnosis
--- OUTSIDE RECORDS SUMMARY | 2016-09-30 19:12 | XMS REPORT | Continuity of Care Document ---
Author Author [facility] Organization [facility] Address Unknown Phone Unavailable Support Name Relationship Address Phone NOEMÍ JOSEPH DO Caregiver [address] [place] [address] Unavailable BEST, ROVERTO Next Of Kin [address] [place] [address] Insurance Providers Guarantor Major Benavides Address [address] [place] [address] Email [email or web address] Payer Self Pay Subscriber's Name Major Benavides Relationship 18 Self Chief Complaint and Reason for Visit Chief Complaint Upper Extremity Injury Reason for Visit Hand contusion Problems Active Problems Medical Problem Onset Date Status Acute prostatitis Unknown Acute Acute prostatitis Unknown Acute Back contusion Unknown Acute Back strain Unknown Acute Contusion of rib on left side Unknown Acute Contusion of rib on left side Unknown Acute Dysuria Unknown Acute Facial contusion Unknown Acute Flank pain Unknown Acute Foot contusion Unknown Acute Hand contusion Unknown Acute Hematuria Unknown Acute Kidney [...] Route Directions Days Qty Instructions Start Date Hydrocodone/Acetaminophen ([place] 5-325 Tablet) 5-325 Tablet 1 Tab Oral Every 4 Hours as needed for Pain 3 Days 18 Tablet 09/25/16 Ibuprofen 200 Mg Tablet 800 Mg Oral Every 4 Hours as needed for Pain 07/30/16 Past Home Medications Medication Directions Ordered Status Cephalexin (Keflex) 500 Mg Capsule, 500 Mg Oral Three Times A Day 11/29/16 Discontinued Clindamycin Hcl 150 Mg Capsule, 2 Cap Oral Q6h/0300,0900,1500,2100 09/10/16 Discontinued Diclofenac Sodium 75 Mg Tablet.dr, 75 Mg Oral Twice A Day 02/19/14 Discontinued Hydrocodone/Acetaminophen ([place] 5-325 Tablet) 5-325 Tablet, 1 Tab Oral Every 4 Hours as needed for Pain 09/10/16 Discontinued Hydrocodone/Acetaminophen ([place] 5-325 Tablet) 1 Each Tablet, 1-2 Tab Oral Every 6 Hours as needed for Pain 02/12/14 Discontinued Hydrocodone/Acetaminophen ([place] 5-325 Tablet) 1 Each Tablet, 1-2 Tab Oral Q6h /0300,0900,1500,2100 as needed for Acute Prostatitis 02/19/14 Discontinued Hydrocodone/Acetaminophen ([place] 5-325 Tablet) 1 Each Tablet, 1-2 Tab Oral Every 6 Hours as needed for Pain 05/28/14 Discontinued Orphenadrine Citrate 100 Mg Tablet.er, 100 Mg Oral Every 12 Hours 01/31/15 Discontinued Tramadol Hcl (Ultram) 50 Mg Tablet, 50 Mg Oral Q6h/0300,0900,1500,2100 Discontinued Social History Social History Problem Response Recorded Date/Time Onset Date Status Hx Substance Use N HX METH 09/25/2016 12:31am Not Applicable Not Applicable Hx Alcohol Use Y OCCASIONAL 09/25/2016 12:31am Not Applicable Not Applicable Tobacco Usage smoke 02/14/2014 7:41pm Not Applicable Not Applicable Query Response Start Date Stop Date Smoking Status Current every day smoker Hospital Discharge Instructions No hospital discharge instructions. Plan of Care Discharge Date 09/25/16 2:15am Disposition 01 DISCHARGED HOME, SELF-CARE Condition at Discharge Improved Instructions/Education Provided Contusion in Adults (ED) Prescriptions See Medication Section Referrals [facility] Order Date: 2 Days Care Plan and Goals Physician Care Plan Problem: Hand Contusion Goal: Follow up with primary care provider [...] PER PT 01/31/15 3:39pm DTaP Vaccine History 201409/25/16 12:31am Influenza Vaccine Hx 201409/25/16 12:31am Tdap Vaccine Hx UTD PER PT 07/30/16 7:05pm Vital Signs Acute Vital Signs Vital Response Date/Time Temperature (Fahrenheit) 97.1 deg F (96.8 - 99.1) 09/25/2016 2:15am Temperature (Calculated Celsius) 36.26015 degrees C (36.0 - 37.3) 09/25/2016 2:15am Pulse Rate (adult) 67 bpm (60 - 100) 09/25/2016 2:15am Respiratory Rate 18 breaths/min (10 - 20) 09/25/2016 2:15am O2 Sat by Pulse Oximetry 97 % (90 - 100) 09/25/2016 2:15am Blood Pressure 157/87 mm Hg 09/25/2016 2:15am Height (Feet) 5 feet 09/25/2016 12:17am Height (Inches) 7.00 inches 09/25/2016 12:17am Weight (Kilograms) 54.500 kg 09/25/2016 12:17am Body Mass Index (BMI) 18.0 09/25/2016 12:17am Results No known relevant diagnostic tests, laboratory data and/or discharge summary. Procedures No known history of procedures. Encounters Encounter Location Arrival/Admit Date Discharge/Depart Date Attending Provider Departed Emergency Room [facility] 09/25/16 12:17am 09/25/16 2: 15am NOEMÍ JOSEPH DO Departed Emergency Room [facility] 09/10/16 6:21pm 09/10/16 7: 09pm NOEMÍ JOSEPH DO Departed Emergency Room [facility] 07/30/16 6:21pm 07/30/16 8: 05pm NICO ASTORGA MD Recent Diagnosis
[2016-09-30] MEDS ORDERED: NO ROUTINE MEDS (19:20)
--- OUTSIDE RECORDS SUMMARY | 2016-09-30 19:47 | XMS REPORT | Continuity of Care Document ---
Author Author [facility] Organization [facility] Address Unknown Phone Unavailable Support Name Relationship Address Phone CHON SHERMAN MD Caregiver [address] [place] [address] [place] [address] LAN CHRISETNSEN Next Of Kin [address] [place] [address] Insurance Providers Payer Name Policy [...] F (96.8 - 99.1) Temperature (Calculated Celsius) 36.17548 degrees C (36.0 - 37.3) Pulse Rate [...] Has specimen been collected/obtained? Y Urine Specific [place] February 12, 2014 11:10am 1.010 L - [...] 2 0-7 Name: MAJOR CASTRO Unit #: [id number] : 1990 Sex: M Loc / Svc: ED DOS: 02/12/14 Signed Report #: [id number] DIAGNOSTIC IMAGING REPORT TYPE OF EXAM: CT [...]
--- OUTSIDE RECORDS SUMMARY | 2016-09-30 19:48 | XMS REPORT | Continuity of Care Document ---
Author Author [facility] Organization [facility] Address Unknown Phone Unavailable Support Name Relationship Address Phone TAMARA GIRALDO MD Caregiver [address] [place] [address] [place] [phone] LAN CHRISTENSEN Next Of Kin [address] [place] [address] Insurance Providers Payer Name Policy [...] F (96.8 - 99.1) Temperature (Calculated Celsius) 36.69090 degrees C (36.0 - 37.3) Pulse Rate [...] Has specimen been collected/obtained? Y Urine Specific [place] May 28, 2014 12:40pm 1.015 - Has [...] Report March 30, 2014 7:30pm REFERENCE LAB [id number] - Turbidity March 30, 2014 6:33pm < [...] 2 0-7 Name: MAJOR CASTRO Unit #: [id number] : 1990 Sex: M Loc / Svc: ED DOS: 05/28/14 Signed Report #: [id number] DIAGNOSTIC IMAGING REPORT TYPE OF EXAM: RIBS [...] Encounters Encounter Location Date/Time Departed Emergency Room [facility] 05/28/14 11:51am Departed Emergency Room [facility] 03/30/14 3:10pm Recent Diagnosis
--- OUTSIDE RECORDS SUMMARY | 2016-09-30 19:48 | XMS REPORT | Continuity of Care Document ---
Author Author [facility] Organization [facility] Address Unknown Phone Unavailable Allergies Active Description [...] Status Pt. Type Provider Facility Loc./Unit Complaint [id number] 05/25/2016 22:05:00 2015 01:08:00 DIS Emergency Jaylin JENNINGS, [facility].THANG [id number] 05/18/2016 17:15:00 2015 20:16:00 DIS Emergency Toni JENNINGS, [facility] [id number] 05/04/2016 16:57:00 2015 18:00:00 DIS [facility]
--- OUTSIDE RECORDS SUMMARY | 2016-09-30 19:48 | XMS REPORT | Continuity of Care Document ---
Author Author [facility] Organization [facility] Address Unknown Phone Unavailable Support Name Relationship Address Phone VISHAL HERNANDEZ DO Caregiver [address] [phone] IGLESIA PIZARRO MD Caregiver [address] [address] Unavailable ALVINNAWAFLAN Next Of Kin [address] [place] [address] Insurance Providers Payer Name Policy [...] F (96.8 - 99.1) Temperature (Calculated Celsius) 37.01574 degrees C (36.0 - 37.3) Pulse Rate [...] Has specimen been collected/obtained? Y Urine Specific [place] March 30, 2014 7:04pm 1.010 L - [...] Report March 30, 2014 7:30pm REFERENCE LAB [id number] - Turbidity March 30, 2014 6:33pm < [...] 2 0-7 Name: MAJOR CASTRO Unit #: [id number] : 1990 Sex: M Loc / [facility]: ED DOS: 02/19/14 Signed Report #: [id number] DIAGNOSTIC IMAGING REPORT TYPE OF EXAM: CT [...] Encounters Encounter Location Date/Time Departed Emergency Room [facility] 03/30/14 3:10pm Departed Emergency Room [facility] 02/19/14 11:52am Departed Emergency Room [facility] 02/12/14 9:18am Recent Diagnosis
--- OUTSIDE RECORDS SUMMARY | 2016-09-30 19:48 | XMS REPORT | Continuity of Care Document ---
Author Author [facility] Organization [facility] Address Unknown Phone Unavailable Support Name Relationship Address Phone CHON SHERMAN MD Caregiver [address] [place] [address] [place] [address] ROBERTO SHERMAN MD Caregiver [address] [place] [address] [place] [address] CHEYADELAN Next Of Kin [address] [place] [address] Insurance Providers Payer Name Policy [...] F (96.8 - 99.1) Temperature (Calculated Celsius) 36.41172 degrees C (36.0 - 37.3) Pulse Rate [...] Has specimen been collected/obtained? Y Urine Specific [place] February 19, 2014 12:45pm <=1.005 L - [...] 2 0-7 Name: MAJOR CASTRO Unit #: [id number] : 1990 Sex: M Loc / c: ED DOS: 02/19/14 Signed Report #: [id number] DIAGNOSTIC IMAGING REPORT TYPE OF EXAM: CT [...]
--- NOTE | 2016-09-30 19:53 | NUR ---
XRY PT TO XRY [facility]IA [facility].
--- NOTE | 2016-09-30 20:02 | NUR ---
XRY PT RETURNED.
--- NOTE | 2016-09-30 20:50 | NUR ---
DR DR JOSEPH AT BEDSIDE.
[2016-09-30] MEDS ORDERED: HYDR-4246 PO (21:07)
[2016-09-30] MEDS ORDERED: NAPR500T PO (21:07)
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
[2016-09-30] MEDS ORDERED: HYDROCODONE/APAP 5 mg/325 mg TABLET PO ONE (21:15)
[2016-09-30 21:24] VITALS: BP 129/76; PULSE 70; RESP 16; TEMP 98.1; O2SAT 99
--- NOTE | 2016-09-30 21:24 | NUR ---
DISMISS PT AMBULATORY TO LOBBY WITH USE OF CRUTCHES, SPLINT, WHICH EXTENDS FROM POSTERIOR FOOT TO UPPER POSTERIOR THIGH REMAINS INTACT.
--- NOTE | 2016-10-01 09:05 | DI ---
Indication: ITS.REASON: pain, injury PROCEDURE: TIB-FIB LEFT 2 VIEW: Encounter: Initial Comparison: None Findings: There is no acute fracture, dislocation or malalignment identified. There is no soft tissue mass or abnormal calcification. No definite radiopaque foreign body. Impression: No acute osseous abnormality. .
--- NOTE | 2016-10-01 09:06 | DI ---
Indication: ITS.REASON: pain, injury PROCEDURE: ANKLE LEFT 3 VIEW: Encounter: Initial Comparison: None Findings: There is no acute fracture, dislocation or malalignment identified. There is no definite focal soft tissue swelling or subluxation. No significant posterior calcaneal heel spur. Impression: No acute osseous abnormality. .
--- NOTE | 2016-10-01 09:06 | DI ---
Indication: ITS.REASON: pain, injury PROCEDURE: FOOT LEFT 3 VIEWS: Encounter: Initial Comparison: None Findings: There is no acute fracture, dislocation or malalignment identified. No soft tissue mass or abnormal calcification. Impression: No acute osseous abnormality. .
--- NOTE | 2016-10-01 11:20 | NUR ---
WORK NOTE PT. PRESENTS TO REGISTRATION WANTING A WORK NOTE, SINCE HE IS ON CRUTCHES. GAVE PT. A NOTE STATING HE WAS SEEN IN ER ON 09/30/16 AND IS TO BE NON-WEIGHT BEARING UNTIL SEEN BY [facility].
== END 2016-09-30 21:24 | disposition home or self-care (01) ==
LOC: ED 19:06
DX: S90.32XA Contusion of left foot, initial encounter (principal); W23.0XXA Caught, crushed, jammed, or pinched between moving objects, initial encounter; Y93.89 Activity, other specified; Y92.009 Unspecified place in unspecified non-institutional (private) residence as the place of occurrence of the external cause; Y99.8 Other external cause status

== ENCOUNTER 2016-10-05 00:20 | Emergency (ER) | payer SELFPAY ==
[~2016-10-05] VITALS: Ht 172.7 cm; Wt 50.6 kg
[~2016-10-05 00:20] MED LIST changes: -IBUP-1724 PO; +NAPR500T PO; +NO ROUTINE MEDS
--- OUTSIDE RECORDS SUMMARY | 2016-10-05 00:24 | XMS REPORT | Continuity of Care Document ---
Author Author [facility] Organization [facility] Address Unknown Phone Unavailable Allergies [...] Status Pt. Type Provider Facility Loc./Unit Complaint [id number] 05/25/2016 22:05:00 2015 01:08:00 DIS Emergency Jaylin JENNINGS, [facility].THANG [id number] 05/18/2016 17:15:00 2015 20:16:00 DIS Emergency Toni JENNINGS, [facility] [id number] 05/04/2016 16:57:00 2015 18:00:00 DIS [facility]
--- OUTSIDE RECORDS SUMMARY | 2016-10-05 00:24 | XMS REPORT | Continuity of Care Document ---
Author Author [facility] Organization [facility] Address Unknown Phone Unavailable Support Name Relationship Address Phone CHON SHERMAN MD Caregiver [address] [place] [address] [place] [address] LAN CHRISTENSEN Next Of Kin [address] [place] [address] Insurance Providers Payer Name Policy [...] F (96.8 - 99.1) Temperature (Calculated Celsius) 36.07998 degrees C (36.0 - 37.3) Pulse Rate [...] Has specimen been collected/obtained? Y Urine Specific [place] February 12, 2014 11:10am 1.010 L - [...] 2 0-7 Name: MAJOR CASTRO Unit #: [id number] : 1990 Sex: M Loc / Svc: ED DOS: 02/12/14 Signed Report #: [id number] DIAGNOSTIC IMAGING REPORT TYPE OF EXAM: CT [...]
--- OUTSIDE RECORDS SUMMARY | 2016-10-05 00:24 | XMS REPORT | Continuity of Care Document ---
Author Author [facility] Organization [facility] Address Unknown Phone Unavailable Support Name Relationship Address Phone TAMARA GIRALDO MD Caregiver [address] [place] [address] [place] [phone] LAN CHRISTENSEN Next Of Kin [address] [place] [address] Insurance Providers Payer Name Policy [...] F (96.8 - 99.1) Temperature (Calculated Celsius) 36.06449 degrees C (36.0 - 37.3) Pulse Rate [...] Has specimen been collected/obtained? Y Urine Specific [place] May 28, 2014 12:40pm 1.015 - Has [...] Report March 30, 2014 7:30pm REFERENCE LAB [id number] - Turbidity March 30, 2014 6:33pm < [...] 2 0-7 Name: MAJOR CASTRO Unit #: [id number] : 1990 Sex: M Loc / Svc: ED DOS: 05/28/14 Signed Report #: [id number] DIAGNOSTIC IMAGING REPORT TYPE OF EXAM: RIBS [...] Encounters Encounter Location Date/Time Departed Emergency Room [facility] 05/28/14 11:51am Departed Emergency Room [facility] 03/30/14 3:10pm Recent Diagnosis
--- OUTSIDE RECORDS SUMMARY | 2016-10-05 00:25 | XMS REPORT | Continuity of Care Document ---
Author Author [facility] Organization [facility] Address Unknown Phone Unavailable Support Name Relationship Address Phone CHON SHERMAN MD Caregiver [address] [place] [address] [place] [address] ROBERTO SHERMAN MD Caregiver [address] [place] [address] [place] [address] CHEYADELAN Next Of Kin [address] [place] [address] Insurance Providers Payer Name Policy [...] F (96.8 - 99.1) Temperature (Calculated Celsius) 36.13163 degrees C (36.0 - 37.3) Pulse Rate [...] Has specimen been collected/obtained? Y Urine Specific [place] February 19, 2014 12:45pm <=1.005 L - [...] 2 0-7 Name: MAJOR CASTRO Unit #: [id number] : 1990 Sex: M Loc / c: ED DOS: 02/19/14 Signed Report #: [id number] DIAGNOSTIC IMAGING REPORT TYPE OF EXAM: CT [...] Encounters Encounter Location Date/Time Departed Emergency Room [facility] 02/19/14 11:52am Departed Emergency Room [facility] 02/12/14 9:18am Recent Diagnosis
--- OUTSIDE RECORDS SUMMARY | 2016-10-05 00:25 | XMS REPORT | Continuity of Care Document ---
Author Author [facility] Organization [facility] Address Unknown Phone Unavailable Support Name Relationship Address Phone VISHAL HERNANDEZ DO Caregiver [address] [phone] IGLESIA PIZARRO MD Caregiver [address] [address] Unavailable ALVINNAWAFLAN Next Of Kin [address] [place] [address] Insurance Providers Payer Name Policy [...] F (96.8 - 99.1) Temperature (Calculated Celsius) 37.08729 degrees C (36.0 - 37.3) Pulse Rate [...] Has specimen been collected/obtained? Y Urine Specific [place] March 30, 2014 7:04pm 1.010 L - [...] Report March 30, 2014 7:30pm REFERENCE LAB [id number] - Turbidity March 30, 2014 6:33pm < [...] 2 0-7 Name: MAJOR CASTRO Unit #: [id number] : 1990 Sex: M Loc / [facility] [place]: ED DOS: 02/19/14 Signed Report #: [id number] DIAGNOSTIC IMAGING REPORT TYPE OF EXAM: CT [...] Encounters Encounter Location Date/Time Departed Emergency Room [facility] 03/30/14 3:10pm Departed Emergency Room [facility] 02/19/14 11:52am Departed Emergency Room [facility] 02/12/14 9:18am Recent Diagnosis
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
[2016-10-05 00:30] VITALS: Ht 172.7 cm; Wt 50.6 kg
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
[2016-10-05 00:55] VITALS: BP 145/98; PULSE 104; RESP 14; TEMP 98.3; O2SAT 100
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
--- OUTSIDE RECORDS SUMMARY | 2016-10-05 01:03 | XMS REPORT | Continuity of Care Document ---
Author Author [facility] Organization [facility] Address Unknown Phone Unavailable Support Name Relationship Address Phone TAMARA GIRALDO MD Caregiver [address] [place] [address] [place] [phone] LAN CHRISTENSEN Next Of Kin [address] [place] [address] Insurance Providers Payer Name Policy [...] F (96.8 - 99.1) Temperature (Calculated Celsius) 36.43501 degrees C (36.0 - 37.3) Pulse Rate [...] Has specimen been collected/obtained? Y Urine Specific [place] May 28, 2014 12:40pm 1.015 - Has [...] Report March 30, 2014 7:30pm REFERENCE LAB [id number] - Turbidity March 30, 2014 6:33pm < [...] 2 0-7 Name: MAJOR CASTRO Unit #: [id number] : 1990 Sex: M Loc / Svc: ED DOS: 05/28/14 Signed Report #: [id number] DIAGNOSTIC IMAGING REPORT TYPE OF EXAM: RIBS [...] Encounter Location Date/Time Departed Emergency Room [facility] 05/28/14 11:51am Departed Emergency Room [facility] 03/30/14 3:10pm Recent Diagnosis
--- OUTSIDE RECORDS SUMMARY | 2016-10-05 01:03 | XMS REPORT | Continuity of Care Document ---
Author Author [facility] Organization [facility] Address Unknown Phone Unavailable Support Name Relationship Address Phone VISHAL HERNANDEZ DO Caregiver [address] [phone] IGLESIA PIZARRO MD Caregiver [address] [address] Unavailable ALVINNAWAFLAN Next Of Kin [address] [place] [address] Insurance Providers Payer Name Policy [...] F (96.8 - 99.1) Temperature (Calculated Celsius) 37.74605 degrees C (36.0 - 37.3) Pulse Rate [...] Has specimen been collected/obtained? Y Urine Specific [place] March 30, 2014 7:04pm 1.010 L - [...] Report March 30, 2014 7:30pm REFERENCE LAB [id number] - Turbidity March 30, 2014 6:33pm < [...] 2 0-7 Name: MAJOR CASTRO Unit #: [id number] : 1990 Sex: M Loc / [facility] [place]: ED DOS: 02/19/14 Signed Report #: [id number] DIAGNOSTIC IMAGING REPORT TYPE OF EXAM: CT [...] Encounters Encounter Location Date/Time Departed Emergency Room [facility] 03/30/14 3:10pm Departed Emergency Room [facility] 02/19/14 11:52am Departed Emergency Room [facility] 02/12/14 9:18am Recent Diagnosis
--- OUTSIDE RECORDS SUMMARY | 2016-10-05 01:03 | XMS REPORT | Continuity of Care Document ---
Author Author [facility] Organization [facility] Address Unknown Phone Unavailable Support Name Relationship Address Phone CHON SHERMAN MD Caregiver [address] [place] [address] [place] [address] LAN CHRISTENSEN Next Of Kin [address] [place] [address] Insurance Providers Payer Name Policy Number Subscriber Name Relationship Self Pay Major Catsro 18 Self Advance Directives Directive Response Recorded [...] F (96.8 - 99.1) Temperature (Calculated Celsius) 36.73945 degrees C (36.0 - 37.3) Pulse Rate [...] Has specimen been collected/obtained? Y Urine Specific [place] February 12, 2014 11:10am 1.010 L - [...] 2 0-7 Name: MAJOR CASTRO Unit #: [id number] : 1990 Sex: M Loc / Svc: ED DOS: 02/12/14 Signed Report #: [id number] DIAGNOSTIC IMAGING REPORT TYPE OF EXAM: CT [...]
--- OUTSIDE RECORDS SUMMARY | 2016-10-05 01:03 | XMS REPORT | Continuity of Care Document ---
Author Author [facility] Organization [facility] Address Unknown Phone Unavailable Allergies Active Description [...] Status Pt. Type Provider Facility Loc./Unit Complaint [id number] 05/25/2016 22:05:00 2015 01:08:00 DIS Emergency Jaylin JENNINGS, [facility].THANG [id number] 05/18/2016 17:15:00 2015 20:16:00 DIS Emergency Toni JENNINGS, [facility] [id number] 05/04/2016 16:57:00 2015 18:00:00 DIS Emergency [facility]
--- OUTSIDE RECORDS SUMMARY | 2016-10-05 01:03 | XMS REPORT | Continuity of Care Document ---
Author Author [facility] Organization [facility] Address Unknown Phone Unavailable Support Name Relationship Address Phone CHON SHERMAN MD Caregiver [address] [place] [address] [place] [address] ROBERTO SHERMAN MD Caregiver [address] [place] [address] [place] [address] CHEYADELAN Next Of Kin [address] [place] [address] Insurance Providers Payer Name Policy [...] F (96.8 - 99.1) Temperature (Calculated Celsius) 36.35393 degrees C (36.0 - 37.3) Pulse Rate [...] specimen been collected/obtained? Y Urine Specific [place] February 19, 2014 12:45pm <=1.005 L - [...] 19, 2014 1:25pm < 2 0-7 Name: MAOJR CASTRO Unit #: [id number] : 1990 Sex: M Loc / c: ED DOS: 02/19/14 Signed Report #: [id number] DIAGNOSTIC IMAGING REPORT TYPE OF EXAM: CT [...] Encounter Location Date/Time Departed Emergency Room [facility] 02/19/14 11:52am Departed Emergency Room [facility] 02/12/14 9:18am Recent Diagnosis
== END 2016-10-05 00:55 | disposition left against medical advice (07) ==
LOC: ED 00:20
DX: Z53.21 Procedure and treatment not carried out due to patient leaving prior to being seen by health care provider (principal)